=== PATIENT | female | born 2000 | race Hispanic/Latino ===

== ENCOUNTER 2021-09-13 15:27 | Emergency (ER) | payer MEDICAID ==
[~2021-09-13] VITALS: Ht 160 cm; Wt 65.0 kg
[2021-09-13 15:49] LABS: URINE BILIRUBIN - DIPSTICK NEGATIVE (NEGATIVE); URINE BLOOD DIPSTICK TRACE-INTACT (NEGATIVE); URINE COLOR YELLOW; URINE GLUCOSE - DIPSTICK NEGATIVE (NEGATIVE); URINE KETONE NEGATIVE (NEGATIVE); URINE LEUK ESTERASE NEGATIVE (NEGATIVE); URINE PROTEIN - DIPSTICK NEGATIVE (NEG-TRACE); URINE SPECIFIC GRAVITY 1.025; URINE UROBILINOGEN - DIPSTICK 0.2 E.U./dL (0.2)
[2021-09-13 15:53] LABS: URINE NITRITE - DIPSTICK NEGATIVE (Negative)
[2021-09-13] MEDS ORDERED: DIFLUCAN100 M1 PO (16:42)
[2021-09-13 16:46] VITALS: BP 111/60
== END 2021-09-13 16:46 | disposition home or self-care (01) ==
LOC: ED 15:27
PROVIDERS: Family Medicine
DX: B37.3 Candidiasis of vulva and vagina (principal)

== ENCOUNTER 2022-01-23 01:26 | Emergency (ER) | payer MEDICAID ==
[~2022-01-23] VITALS: Ht 160 cm; Wt 59.0 kg
[~2022-01-23 01:26] MED LIST: DIFLUCAN100 M1 PO
[2022-01-23 01:35] VITALS: BP 126/84
[2022-01-23 02:05] LABS: HEMATOCRIT 35.5 % (37.0-47.0); HEMOGLOBIN 11.7 g/dl (12.0-16.0); IMMATURE GRANULOCYTES 0.4 % (0.0-5.0); MEAN CELL VOLUME 87.7 fL CALC (80.0-100.0); MEAN CORPUSCULAR HGB 28.9 pG CALC (26.0-32.0); NEUT# 5.89 thou/uL (2.00-7.15); RED BLOOD COUNT 4.05 mill/uL (4.20-5.60); RED CELL DISTRI WIDTH 12.1 % (11.5-15.5)
[2022-01-23 02:13] LABS: ALBUMIN 4.4 g/dL (3.2-5.0); ALKALINE PHOSPHATASE 84 u/l (38-126); AMYLASE 83 u/l (30-110); ANION GAP 15 (6-22 (CALC)); BILIRUBIN, TOTAL 0.2 mg/dL (0.0-1.4); BUN 10 mg/dL (7-17); BUN/CREATININE RATIO 14 (12-20 (CALC)); CARBON DIOXIDE 22 mmol/l (22-30); CHLORIDE 107 mmol/l (95-108); CREATININE 0.7 mg/dL (0.5-1.0); GFR > 60 ML/MIN (>=60 (CALC)); GFR FOR AFR.AMER. > 60 ML/MIN (>=60 (CALC)); LIPASE 102 u/l (23-300); POTASSIUM 3.6 mmol/l (3.5-5.1); SGOT/AST 20 u/l (14-36); SODIUM 140 mmol/l (137-146); TOTAL PROTEIN 7.5 g/dL (6.3-8.2)
[2022-01-23 02:25] LABS: MYOGLOBIN 12 ng/mL (0 - 62)
[2022-01-23] MEDS ORDERED: EQ OMEPRAZOLE20 MG PO (02:36)
[2022-01-23 02:38] VITALS: BP 126/84
== END 2022-01-23 02:45 | disposition home or self-care (01) ==
LOC: ED 01:26
PROVIDERS: Emergency Medicine
DX: K29.70 Gastritis, unspecified, without bleeding (principal)
CPT/HCPCS: S0164

== ENCOUNTER 2022-02-19 14:56 | Emergency (ER) | payer MEDICAID ==
[~2022-02-19] VITALS: Ht 160 cm; Wt 59.0 kg
[~2022-02-19 14:56] MED LIST changes: +EQ OMEPRAZOLE20 MG PO
[2022-02-19 16:14] LABS: URINE BILIRUBIN - DIPSTICK NEGATIVE (NEGATIVE); URINE BLOOD DIPSTICK LARGE (NEGATIVE); URINE COLOR YELLOW; URINE GLUCOSE - DIPSTICK NEGATIVE (NEGATIVE); URINE KETONE NEGATIVE (NEGATIVE); URINE PROTEIN - DIPSTICK NEGATIVE (NEG-TRACE); URINE SPECIFIC GRAVITY <=1.005; URINE UROBILINOGEN - DIPSTICK 0.2 E.U./dL (0.2)
[2022-02-19 16:16] LABS: URINE LEUK ESTERASE MODERATE (NEGATIVE); URINE NITRITE - DIPSTICK NEGATIVE (Negative)
[2022-02-19 16:20] LABS: URINE SQUAMOUS EPITHELIAL CELL FEW EPI/hpf (0-FEW)
[2022-02-19] MEDS ORDERED: NITROFURANTN100 M2 PO (16:59)
[2022-02-19 17:20] VITALS: BP 111/72
== END 2022-02-19 17:24 | disposition home or self-care (01) ==
LOC: ED 14:56
PROVIDERS: Family Medicine
DX: N39.0 Urinary tract infection, site not specified (principal); B96.20 Unspecified Escherichia coli [E. coli] as the cause of diseases classified elsewhere

== ENCOUNTER 2022-02-28 10:10 | Emergency (ER) | payer MEDICAID ==
[~2022-02-28] VITALS: Ht 160 cm; Wt 59.0 kg
[~2022-02-28 10:10] MED LIST changes: +NITROFURANTN100 M2 PO
[2022-02-28 10:16] VITALS: BP 120/75
[2022-02-28 10:30] VITALS: BP 107/65
[2022-02-28 11:07] LABS: URINE BILIRUBIN - DIPSTICK NEGATIVE (NEGATIVE); URINE BLOOD DIPSTICK TRACE-INTACT (NEGATIVE); URINE COLOR YELLOW; URINE GLUCOSE - DIPSTICK NEGATIVE (NEGATIVE); URINE KETONE NEGATIVE (NEGATIVE); URINE LEUK ESTERASE NEGATIVE (NEGATIVE); URINE PROTEIN - DIPSTICK NEGATIVE (NEG-TRACE); URINE SPECIFIC GRAVITY 1.025; URINE UROBILINOGEN - DIPSTICK 0.2 E.U./dL (0.2)
[2022-02-28 11:08] LABS: URINE NITRITE - DIPSTICK NEGATIVE (Negative)
[2022-02-28 12:30] VITALS: BP 107/65
== END 2022-02-28 12:30 | disposition home or self-care (01) ==
LOC: ED 10:10
PROVIDERS: Internal Medicine
DX: B37.3 Candidiasis of vulva and vagina (principal)

== ENCOUNTER 2022-04-10 00:38 | Emergency (ER) | payer MEDICAID ==
[~2022-04-10] VITALS: Ht 160 cm; Wt 61.0 kg
[2022-04-10] MEDS ORDERED: ZYRTEC10 MG PO (01:04)
[2022-04-10 01:22] VITALS: BP 110/78
== END 2022-04-10 01:22 | disposition home or self-care (01) ==
LOC: ED 00:38
DX: R21 Rash and other nonspecific skin eruption (principal)

== ENCOUNTER 2022-08-21 12:03 | Emergency (ER) | payer MEDICAID ==
[~2022-08-21] VITALS: Ht 160 cm; Wt 62.0 kg
[~2022-08-21 12:03] MED LIST changes: +ZYRTEC10 MG PO
[2022-08-21 13:21] LABS: HEMATOCRIT 39.7 % (37.0-47.0); HEMOGLOBIN 13.2 g/dl (12.0-16.0); MEAN CELL VOLUME 88.4 fL CALC (80.0-100.0); MEAN CORPUSCULAR HGB 29.4 pG CALC (26.0-32.0); MEAN CORPUSCULAR HGB CONC 33.2 g/dL CAL (32.0-36.0); NEUT# 3.43 thou/uL (2.00-7.15); RED BLOOD COUNT 4.49 mill/uL (4.20-5.60); RED CELL DISTRI WIDTH 11.9 % (11.5-15.5)
[2022-08-21 13:33] LABS: ALKALINE PHOSPHATASE 80 u/l (38-126); ANION GAP 16 (6-22 (CALC)); BUN 5 mg/dL (7-17); BUN/CREATININE RATIO 8 (12-20 (CALC)); CARBON DIOXIDE 24 mmol/l (22-30); CHLORIDE 104 mmol/l (95-108); CREATININE 0.7 mg/dL (0.5-1.0); GFR FOR AFR.AMER. > 60 ML/MIN (>=60 (CALC)); GFR OTHER RACES > 60 ML/MIN (>=60 (CALC)); POTASSIUM 3.9 mmol/l (3.5-5.1); SGOT/AST 24 u/l (14-36); SODIUM 141 mmol/l (137-146); TOTAL PROTEIN 8.3 g/dL (6.3-8.2)
[2022-08-21 13:39] LABS: BILIRUBIN, TOTAL 0.4 mg/dL (0.0-1.4)
[2022-08-21 13:59] LABS: URINE BILIRUBIN - DIPSTICK NEGATIVE (NEGATIVE); URINE BLOOD DIPSTICK SMALL (NEGATIVE); URINE COLOR YELLOW; URINE GLUCOSE - DIPSTICK NEGATIVE (NEGATIVE); URINE KETONE NEGATIVE (NEGATIVE); URINE LEUK ESTERASE NEGATIVE (NEGATIVE); URINE PH 7.5 (4.5-8.0); URINE PROTEIN - DIPSTICK NEGATIVE (NEG-TRACE); URINE SPECIFIC GRAVITY 1.015; URINE UROBILINOGEN - DIPSTICK 0.2 E.U./dL (0.2)
[2022-08-21 14:00] LABS: URINE NITRITE - DIPSTICK NEGATIVE (Negative)
[2022-08-21 14:10] LABS: URINE RBC 0-2 RBC/hpf (0-5); URINE SQUAMOUS EPITHELIAL CELL MANY EPI/hpf (0-FEW)
[2022-08-21] MEDS ORDERED: DICYCLOMINE10 MG PO (14:18)
[2022-08-21] MEDS ORDERED: ONDANSETRON4 MG PO (14:18)
[2022-08-21 14:20] VITALS: BP 118/68
== END 2022-08-21 14:31 | disposition home or self-care (01) ==
LOC: ED 12:03
PROVIDERS: Nurse Practitioner
DX: R19.7 Diarrhea, unspecified (principal); R11.2 Nausea with vomiting, unspecified

== ENCOUNTER 2023-02-27 13:31 | Emergency (ER) | payer MEDICAID ==
[~2023-02-27] VITALS: Ht 160 cm; Wt 66.2 kg
[2023-02-27] VITALS (7 sets, daily range): BP systolic 107–119; BP diastolic 68–80
[~2023-02-27 13:31] MED LIST changes: +DICYCLOMINE10 MG PO; +ONDANSETRON4 MG PO
[2023-02-27] MEDS ORDERED: ZYRTEC10 MG PO (14:42)
[2023-02-27] MEDS ORDERED: MEDDOSEPAK PO (14:42)
[2023-02-27] MEDS ORDERED: HYDROXYZINE HYD25 MG PO (14:42)
== END 2023-02-27 15:05 | disposition home or self-care (01) ==
LOC: ED 13:31
DX: L50.1 Idiopathic urticaria (principal)